=== PATIENT | male | born 1980 | race Caucasian/White ===

== ENCOUNTER 2017-02-20 12:01 | Day surgery (SDC) | payer OTHER ==
[~2017-02-20] VITALS: Ht 167.6 cm; Wt 70.0 kg
[2017-02-20 12:36] VITALS: BP 125/81; PULSE 75; RESP 18
[2017-02-20 12:48] VITALS: Ht 167.6 cm; Wt 70.0 kg
[2017-02-20] MEDS ORDERED: RANI150T9 PO (12:58)
[2017-02-20] MEDS ORDERED: PROPOFOL 80 ML ONE (15:08)
[2017-02-20] MEDS ORDERED: LIDOCAINE 2% (SDV) 5 ML INJ ONE (15:09)
[2017-02-20 16:20] VITALS: BP 117/65; PULSE 68; RESP 18
--- NOTE | 2017-02-23 03:47 | GILP ---
DATE OF PROCEDURE: 02/20/2017 PROCEDURE: Esophagogastroduodenoscopy with biopsies. BRIEF HISTORY AND INDICATIONS: The patient is being evaluated for abdominal pain and diarrhea. PREMEDICATION: Monitored anesthesia care by anesthesiologist. SURGEON: Timur Langford MD. INSTRUMENT USED: Olympus panendoscopy. TECHNIQUE: After informed consent, with the patient/relatives understanding the procedure, its indic ations, potential risks and complications, including but not limited to: allergic reaction, bleeding , perforation or infection, and after all pertinent questions were answered to the patient's satisfa ction, the patient/relatives signed witnessed informed consent. Following this, premedication was administered slowly IV push under careful cardiovascular and respi ratory monitoring with pulse oximetry, automatic blood pressure and property assessment monitor. Once the sedative effect was achieved the patient was place in the left lateral decubitus, the panen doscope was introduced and advanced under visual control. Careful examination of the upper gastrointestinal tract, both on insertion as well as withdrawal of the instrument disclosed the following findings: ESOPHAGUS: The mucosa of the entire esophagus appears within normal limits. There is no evidence of esophagitis, varices, neoplasm or stricture. No hiatal hernia identified. STOMACH: Upon entrance to the stomach air was insufflated, the gastric adair distended normally. T here is erythema and edema of the mucosa of a moderate degree. Biopsies were obtained to rule out H . pylori infection. PYLORUS: The pylorus appears patent and within normal limits, with no evidence of gastric outlet ob struction. DUODENUM: The duodenal mucosa was carefully examined in the duodenal bulb as well as the second por tion of the duodenum and appears unremarkable with no evidence of duodenitis, ulcer or neoplasm. The instrument was then withdrawn, the patient tolerated the procedure well and was transfer out of the endoscopy suite awake, and in good condition to continue recovery under observation. IMPRESSION: Moderate gastritis, rule out Helicobacter pylori infection, biopsies obtained. PLAN: The patient will be treated with PPIs. Further recommendation will depend on the patient's c linical course as well as review of biopsies. Dictated By: TIMUR LANGFORD MS/KARTIK Conf#: [id number] DID#: [id number] CC: TIMUR LANGFORD;*EndCC*
--- NOTE | 2017-02-23 04:04 | GILP ---
DATE OF PROCEDURE: PROCEDURE: Colonoscopy with biopsy, with biopsies. BRIEF HISTORY AND INDICATIONS: The patient is being evaluated for unexplained diarrhea. PREMEDICATION: Monitored anesthesia care by anesthesiologist. SURGEON: Timur Langford MD. INSTRUMENT USED: Olympus colonoscope. PREPARATION: Adequate. TECHNIQUE: After informed consent, with the patient/relatives understanding the procedure, its indic ations potential risks and complications, including but not limited to: allergic reaction, bleeding, perforation, infection, missed lesions and after all pertinent questions were answered to the patie nt's satisfaction, the patient/relatives signed the witnessed informed consent. Following this, premedication was administered slowly IV push by under careful cardiovascular and re spiratory monitoring with pulse oximetry, automatic blood pressure and monitoring and evaluation advisor. Once the sedativ e effect was achieved, the patient was placed in the left lateral decubitus position, digital rectal examination was performed. The colonoscope was then introduced and advanced under visual control th roughout all segments of the colon including: the rectum, sigmoid, descending colon, splenic flexure , transverse colon, hepatic flexure, ascending colon and finally reaching the cecum which was clearl y identified by transillumination, finger indentation and the ileocecal valve. Careful examination o f the mucosa of the lower gastrointestinal tract both on insertion as well as withdrawal of the inst rument disclosed the following findings: Rectal Examination: No evidence of perirectal disease, no masses. Colonic Mucosa: The colonic mucosa is entirely unremarkable. Biopsies were obtained randomly to ru le out microscopic lymphocytic or collagenous colitis. The terminal ileum was examined, appeared unremarkable. Biopsies were obtained to rule out underlyi ng microscopic inflammatory bowel disease. The instrument was withdrawn. We examined the mucosa in detail. No additional abnormalities were n oted with the exception of small internal hemorrhoids. IMPRESSION: 1. Normal colonic mucosa to cecum. Rule out microscopic lymphocytic or collagenous colitis. 2. Normal ileum. Biopsies obtained. 3. Small internal hemorrhoids. PLAN: The patient will follow up as an outpatient. Pathology will be reviewed as soon as available . Further recommendations will depend on the patient's clinical course. stool testing is rec ommended. Colonoscopy in 10 years is also recommended. Dictated By: TIMUR LANGFORD MS/KARTIK Conf#: [id number] DID#: [id number]
== END 2017-02-20 16:12 | disposition home or self-care (01) ==
LOC: GIL 12:01
PROVIDERS: ATTEND Internal Medicine Gastroenterology
DX: K29.30 Chronic superficial gastritis without bleeding (principal); K64.8 Other hemorrhoids
CPT/HCPCS: 43239; 45380; 88305; 88312; Z7610